=== PATIENT | female | born 1965 | race Caucasian/White ===

== ENCOUNTER 2018-09-06 11:56 | Emergency (ER) | payer OTHER, SELFPAY ==
[2018-09-06 12:00] VITALS: BP 122/89; PULSE 72; RESP 14; TEMP 36.7; O2SAT 98
--- NOTE | 2018-09-06 12:09 | DI.RAD.S_ITS ---
PROCEDURE: XR ANKLE LT MIN 3V INDICATIONS: trauma left ankle / foot. Please include mid foot if pos. TECHNIQUE: 3 views of the ankle were acquired. COMPARISON: None. FINDINGS: Bones: No fractures or dislocations. Ankle mortise is normally aligned. No suspicious bony lesions. Well-defined plantar and dorsal calcaneal enthesophytes are seen. Soft tissues: No tibiotalar joint effusion. Achilles tendon appears normal. Mild ankle soft tissue swelling is seen. IMPRESSION: No acute left ankle fracture or dislocation. Mild ankle soft tissue swelling. Dictated by: Severo Ennis M.D. on 09/06/2018 at 12:42 Approved by: Severo Ennis M.D. on 09/06/2018 at 12:43
--- NOTE | 2018-09-06 12:09 | DI.RAD.S_ITS ---
PROCEDURE: XR KNEE LT 3V INDICATIONS: trauma, pain knee and left ankle/foot TECHNIQUE: 3 views of the knee were acquired. COMPARISON: None. FINDINGS: Bones: No fractures or dislocations. No suspicious bony lesions. Moderate tricompartmental osteoarthritis is seen more prominent in medial femoral tibial compartment. No significant patellar subluxation. Soft tissues: No joint effusion. No suspicious soft tissue calcifications. IMPRESSION: No acute left knee fracture or dislocation. Moderate tricompartmental osteoarthritis. Dictated by: Severo Ennis M.D. on 09/06/2018 at 12:39 Approved by: Seevro Ennis M.D. on 09/06/2018 at 12:40
[2018-09-06 12:14] VITALS: PULSE 72
--- NOTE | 2018-09-06 12:14 | ED.LOWEXIN ---
HPI - Extremity Injury (Lower) <SOFIA Wynn - Last Filed: 09/06/18 21:24> General Chief Complaint: Extremity Injury, Lower Stated Complaint: fall down 5 stairs, left leg injury, ankle pop Time Seen by Provider: 09/06/18 12:14 Source: patient Mode of arrival: ambulatory Limitations: no limitations History of Present Illness HPI Narrative: 52-year-old female history of rheumatoid arthritis and is nonsmoker here for complaint of pain into her left knee ankle and foot after she slipped on her stairs earlier today due to ice. She states that her lower leg bent backwards as she slipped on the steps. Pain is limited to the lower extremity. she denies hitting her head. No neck pain. Pain is limited to the left lower extremity. Increased pain with weight-bearing to the left lower extremity. She does report having some swelling into the left knee and to left ankle. MD complaint: leg injury Related Data Allergies Allergy/AdvReac Type Severity Reaction Status Date / Time hydrocodone [From Vicodin] Allergy Severe Hallucinati Verified 09/06/18 12:08 ng latex Allergy Mild Rash Verified 09/06/18 12:08 Review of Systems <SOFIA Wynn - Last Filed: 09/06/18 21:24> Constitutional Denies chills, Denies fever(s), Denies lethargy and Denies weakness Eyes Denies change in vision, Denies eye discharge, Denies irritation and Denies loss of vision ENT Ears, Nose, Mouth, and Throat: Denies change in voice, Denies neck pain and Denies sore throat Cardiovascular Denies chest pain, Denies irregular heart rhythm, Denies lightheadedness, Denies palpitations, Denies dyspnea, Denies dyspnea on exertion and Denies orthopnea Respiratory Denies cough, Denies dyspnea, Denies dyspnea on exertion and Denies wheezing Gastrointestinal Gastrointestinal: Denies abdominal pain, Denies change in bowel habits, Denies diarrhea, Denies nausea and Denies vomiting Genitourinary Denies hematuria, Denies flank pain, Denies urinary incontinence and Denies urinary urgency Musculoskeletal Denies neck pain Comments: Pain left knee ankle and foot after ground level fall Integumentary/Breasts Denies pruritus, Denies erythema, Denies rash and Denies wounds Neurologic Denies confusion, Denies loss of vision and Denies weakness Psychiatric Denies anxiety, Denies confusion, Denies depression, Denies homicidal ideation and Denies suicidal ideation Endocrine Denies palpitations Hematologic/Lymphatic Denies easy bruising Allergic/Immunologic Denies wheezing Exam <SOFIA Wynn - Last Filed: 09/06/18 21:24> Initial Vital Signs Initial Vital Signs: Vital Signs Temperature 98.1 F 09/06/18 12:00 Pulse Rate 72 09/06/18 12:00 Respiratory Rate 14 09/06/18 12:00 Blood Pressure 122/89 09/06/18 12:00 Pulse Oximetry 98 09/06/18 12:00 Const General: cooperative and well developed Nutritional Appearance: well nourished Orientation: alert, awake, oriented x3 and not confused HENVA Mouth: oral mucosae normal and moist mucous membranes Eyes Conjunctivae: conjunctivae normal Sclera: sclerae normal Pupils: PERRL EOM: EOM intact bilaterally Resp Effort & Inspection: normal respiratory effort, able to speak in complete sentences, no respiratory distress and no use of accessory muscles Auscultation: clear to auscultation bilaterally, no rales, no rhonchi and no wheezes Cardio Rate: regular rate Rhythm: regular rhythm Heart Sounds: no click, no gallops, no murmurs and no rubs Skin General: no rashes or lesions noted, No jaundice and No petechiae Neuro General: alert, oriented x3, gait normal and no focal motor deficits Speech: speech normal Extrem Other: slight swelling to the left knee no ecchymosis. No deformities. No open lesions. Negative anterior-posterior drawer sign. Negative varus and valgus stress test. Swelling into the anterior /medial aspect of the right ankle and into the dorsum of the left foot. No deformities. superficial abrasion to the dorsum of the left foot. Distal sensation is intact. Distal cap refill less than 2 sec. Distal range of motion is intact. <Zhang Younger DO - Last Filed: 09/08/18 07:06> Initial Vital Signs Initial Vital Signs: Vital Signs Temperature 98.1 F 09/06/18 12:00 Pulse Rate 72 09/06/18 12:00 Respiratory Rate 14 09/06/18 12:00 Blood Pressure 122/89 09/06/18 12:00 Pulse Oximetry 98 09/06/18 12:00 Course <SOFIA Wynn - Last Filed: 09/06/18 21:24> Orders Ordered: Discontinued Medications Ibuprofen (Advil) 400 mg PO NOW ONE Stop: 09/06/18 12:24 Last Admin: 09/06/18 12:45 Dose: 400 mg Vital Signs - 8 hr 09/06/18 14:22 Pulse Rate 70 Blood Pressure [Left Arm] 126/78 Pulse Oximetry 98 <Zhang Younger DO - Last Filed: 09/08/18 07:06> Orders Ordered: Discontinued Medications Ibuprofen (Advil) 400 mg PO NOW ONE Stop: 09/06/18 12:24 Last Admin: 09/06/18 12:45 Dose: 400 mg Vital Signs - 8 hr 09/06/18 14:22 Pulse Rate 70 Blood Pressure [Left Arm] 126/78 Pulse Oximetry 98 MDM - Extremity Injury (Lower) <SOFIA Wynn - Last Filed: 09/06/18 21:24> Imaging Data Left knee : Radiologist's impression: [address] [place] [id number] XRay Report Signed Patient: Shila España BETZYR#: [id number] : 1965Acct:[id number] Age/Sex: 52 / FDate of Service: 09/06/18 Loc: ED Accession Number: [id number] Procedure: XR knee LT 3V Ordering Provider: Zhang Younger D.O. PROCEDURE: XR KNEE LT 3V INDICATIONS: trauma, pain knee and left ankle/foot TECHNIQUE: 3 views of the knee were acquired. COMPARISON: None. FINDINGS: Bones: No fractures or dislocations. No suspicious bony lesions. Moderate tricompartmental osteoarthritis is seen more prominent in medial femoral tibial compartment. No significant patellar subluxation. Soft tissues: No joint effusion. No suspicious soft tissue calcifications. IMPRESSION: No acute left knee fracture or dislocation. Moderate tricompartmental osteoarthritis. Dictated by: Severo Ennis M.D. on 09/06/2018 at 12:39 Approved by: Severo Ennis M.D. on 09/06/2018 at 12:40 left ankle : Radiologist's impression: [address] [address] XRay Report Signed Patient: TacoShila JMR#: [id number] : 1965Acct:[id number] Age/Sex: 52 / FDate of Service: 09/06/18 Loc: ED Accession Number: [id number] Procedure: XR ankle LT min 3V Ordering Provider: Zhang Younger D.O. PROCEDURE: XR ANKLE LT MIN 3V INDICATIONS: trauma left ankle / foot. Please include mid foot if pos. TECHNIQUE: 3 views of the ankle were acquired. COMPARISON: None. FINDINGS: Bones: No fractures or dislocations. Ankle mortise is normally aligned. No suspicious bony lesions. Well-defined plantar and dorsal calcaneal enthesophytes are seen. Soft tissues: No tibiotalar joint effusion. Achilles tendon appears normal. Mild ankle soft tissue swelling is seen. IMPRESSION: No acute left ankle fracture or dislocation. Mild ankle soft tissue swelling. Dictated by: Severo Ennis M.D. on 09/06/2018 at 12:42 Approved by: Severo Ennis M.D. on 09/06/2018 at 12:43 left foot : Radiologist's impression: [address] [place] [address] XRay Report Signed Patient: Shila España JMR#: [id number] : 1965Acct:[id number] Age/Sex: 52 / FDate of Service: 09/06/18 Loc: ED Accession Number: [id number] Procedure: XR foot LT min 3V Ordering Provider: Marco Antonio Ramirez PROCEDURE: XR FOOT LT MIN 3V INDICATIONS: pain to right foot ankle and knee after ground level fall TECHNIQUE: 3 views of the foot were acquired. COMPARISON: None. FINDINGS: Bones: No fractures or dislocations. No suspicious bony lesions. Moderate osteoarthritic changes in first MTP joint are seen with joint space narrowing and prominent marginal osteophyte formation. Osteoarthritic changes also noted throughout second through fifth PIP and DIP joints. Well-defined plantar and dorsal continuities of height is seen. Soft tissues: No tibiotalar joint effusion. Achilles tendon appears normal. IMPRESSION: No gross acute level fracture or dislocation. Forefoot joint osteoarthritis. Dictated by: Severo Ennis M.D. on 09/06/2018 at 12:41 Approved by: Severo Ennis M.D. on 09/06/2018 at 12:42 [facility] Narrative Medical decision making narrative: x-rays of the left knee ankle and foot were obtained and were negative for any acute fractures. Signs and symptoms presents as sprain to the left knee and to the left ankle. She is provided with a knee immobilizer and ankle splint along with crutches for nonweightbearing [id number] ibuprofen as needed for any discomfort. Ice and elevation help with any swelling. Follow up with primary care provider later this week for re-evaluation. For any worsening symptoms return to the emergency room. Nonweightbearing until can bear weight without additional discomfort. slowly advance activity as tolerated. Discharge Plan Departure Patient Disposition: Home Clinical Impression: Left ankle sprain, Left knee sprain Discharge Date/Time: 09/06/18 14:23 Interventions: ED Discharge Assessment Last Done: 09/06/18 14:23 Instructions: DI for Knee Sprain, DI for Ankle Sprain Activity Restrictions/Additional Instructions: x-rays of the left knee, ankle and foot were obtained and were negative for any acute fractures. Signs and symptoms presents as sprain to the left knee and to the left ankle. you are placed in a knee immobilizer and ankle splint along with crutches for nonweightbearing and support. Use [id number] ibuprofen as needed for any discomfort. Ice and elevation help with any swelling. Follow up with primary care provider later this week for re-evaluation. For any worsening symptoms return to the emergency room. Nonweightbearing until can bear weight without additional discomfort. slowly advance activity as tolerated. Referrals: [facility] [Provider Group] <Zhang Younger DO - Last Filed: 09/08/18 07:06> [facility] Attestation: I was immediately available in the department for consultation. Documentation has been reviewed. I agree with assessment and plan.
--- NOTE | 2018-09-06 12:15 | PC.NURSE ---
Sensation, movement and neurovascular intact, left foot and leg.
--- NOTE | 2018-09-06 12:23 | DI.RAD.S_ITS ---
PROCEDURE: XR FOOT LT MIN 3V INDICATIONS: pain to right foot ankle and knee after ground level fall TECHNIQUE: 3 views of the foot were acquired. COMPARISON: None. FINDINGS: Bones: No fractures or dislocations. No suspicious bony lesions. Moderate osteoarthritic changes in first MTP joint are seen with joint space narrowing and prominent marginal osteophyte formation. Osteoarthritic changes also noted throughout second through fifth PIP and DIP joints. Well-defined plantar and dorsal continuities of height is seen. Soft tissues: No tibiotalar joint effusion. Achilles tendon appears normal. IMPRESSION: No gross acute level fracture or dislocation. Forefoot joint osteoarthritis. Dictated by: Severo Ennis M.D. on 09/06/2018 at 12:41 Approved by: Severo Ennis M.D. on 09/06/2018 at 12:42
[2018-09-06] MEDS: IBUPROFEN 400 MG TABLET PO (12:45)
--- NOTE | 2018-09-06 13:19 | ED_ITS ---
HPI - Extremity Injury (Lower) <SOFIA Wynn - Last Filed: 09/06/18 21:24> General Chief Complaint: Extremity Injury, Lower Stated Complaint: fall down 5 stairs, left leg injury, ankle pop Time Seen by Provider: 09/06/18 12:14 Source: patient Mode of arrival: ambulatory Limitations: no limitations History of Present Illness HPI Narrative: 52-year-old female history of rheumatoid arthritis and is nonsmoker here for complaint of pain into her left knee ankle and foot after she slipped on her stairs earlier today due to ice. She states that her lower leg bent backwards as she slipped on the steps. Pain is limited to the lower extremity. she denies hitting her head. No neck pain. Pain is limited to the left lower extremity. Increased pain with weight-bearing to the left lower extremity. She does report having some swelling into the left knee and to left ankle. MD complaint: leg injury Related Data Allergies Allergy/AdvReac Type Severity Reaction Status Date / Time hydrocodone [From Vicodin] Allergy Severe Hallucinati Verified 09/06/18 12:08 ng latex Allergy Mild Rash Verified 09/06/18 12:08 Review of Systems <SOFIA Wynn - Last Filed: 09/06/18 21:24> Constitutional Denies chills, Denies fever(s), Denies lethargy and Denies weakness Eyes Denies change in vision, Denies eye discharge, Denies irritation and Denies loss of vision ENT Ears, Nose, Mouth, and Throat: Denies change in voice, Denies neck pain and Denies sore throat Cardiovascular Denies chest pain, Denies irregular heart rhythm, Denies lightheadedness, Denies palpitations, Denies dyspnea, Denies dyspnea on exertion and Denies orthopnea Respiratory Denies cough, Denies dyspnea, Denies dyspnea on exertion and Denies wheezing Gastrointestinal Gastrointestinal: Denies abdominal pain, Denies change in bowel habits, Denies diarrhea, Denies nausea and Denies vomiting Genitourinary Denies hematuria, Denies flank pain, Denies urinary incontinence and Denies urinary urgency Musculoskeletal Denies neck pain Comments: Pain left knee ankle and foot after ground level fall Integumentary/Breasts Denies pruritus, Denies erythema, Denies rash and Denies wounds Neurologic Denies confusion, Denies loss of vision and Denies weakness Psychiatric Denies anxiety, Denies confusion, Denies depression, Denies homicidal ideation and Denies suicidal ideation Endocrine Denies palpitations Hematologic/Lymphatic Denies easy bruising Allergic/Immunologic Denies wheezing Exam <SOFIA Wynn - Last Filed: 09/06/18 21:24> Initial Vital Signs Initial Vital Signs: Vital Signs Temperature 98.1 F 09/06/18 12:00 Pulse Rate 72 09/06/18 12:00 Respiratory Rate 14 09/06/18 12:00 Blood Pressure 122/89 09/06/18 12:00 Pulse Oximetry 98 09/06/18 12:00 Const General: cooperative and well developed Nutritional Appearance: well nourished Orientation: alert, awake, oriented x3 and not confused HENCO Mouth: oral mucosae normal and moist mucous membranes Eyes Conjunctivae: conjunctivae normal Sclera: sclerae normal Pupils: PERRL EOM: EOM intact bilaterally Resp Effort & Inspection: normal respiratory effort, able to speak in complete sentences, no respiratory distress and no use of accessory muscles Auscultation: clear to auscultation bilaterally, no rales, no rhonchi and no wheezes Cardio Rate: regular rate Rhythm: regular rhythm Heart Sounds: no click, no gallops, no murmurs and no rubs Skin General: no rashes or lesions noted, No jaundice and No petechiae Neuro General: alert, oriented x3, gait normal and no focal motor deficits Speech: speech normal Extrem Other: slight swelling to the left knee no ecchymosis. No deformities. No open lesions. Negative anterior-posterior drawer sign. Negative varus and valgus stress test. Swelling into the anterior /medial aspect of the right ankle and into the dorsum of the left foot. No deformities. superficial abrasion to the dorsum of the left foot. Distal sensation is intact. Distal cap refill less than 2 sec. Distal range of motion is intact. <Zhang Younger DO - Last Filed: 09/08/18 07:06> Initial Vital Signs Initial Vital Signs: Vital Signs Temperature 98.1 F 09/06/18 12:00 Pulse Rate 72 09/06/18 12:00 Respiratory Rate 14 09/06/18 12:00 Blood Pressure 122/89 09/06/18 12:00 Pulse Oximetry 98 09/06/18 12:00 Course <SOFIA Wynn - Last Filed: 09/06/18 21:24> Orders Ordered: Discontinued Medications Ibuprofen (Advil) 400 mg PO NOW ONE Stop: 09/06/18 12:24 Last Admin: 09/06/18 12:45 Dose: 400 mg Vital Signs - 8 hr 09/06/18 14:22 Pulse Rate 70 Blood Pressure [Left Arm] 126/78 Pulse Oximetry 98 <Zhang Younger DO - Last Filed: 09/08/18 07:06> Orders Ordered: Discontinued Medications Ibuprofen (Advil) 400 mg PO NOW ONE Stop: 09/06/18 12:24 Last Admin: 09/06/18 12:45 Dose: 400 mg Vital Signs - 8 hr 09/06/18 14:22 Pulse Rate 70 Blood Pressure [Left Arm] 126/78 Pulse Oximetry 98 MDM - Extremity Injury (Lower) <SOFIA Wynn - Last Filed: 09/06/18 21:24> Imaging Data Left knee : Radiologist's impression: [address] [place] [address] XRay Report Signed Patient: Shila España BETZYR#: [id number] : 1965Acct:[id number] Age/Sex: 52 / FDate of Service: 09/06/18 Loc: ED Accession Number: [id number] Procedure: XR knee LT 3V Ordering Provider: Zhang Younger D.O. PROCEDURE: XR KNEE LT 3V INDICATIONS: trauma, pain knee and left ankle/foot TECHNIQUE: 3 views of the knee were acquired. COMPARISON: None. FINDINGS: Bones: No fractures or dislocations. No suspicious bony lesions. Moderate tricompartmental osteoarthritis is seen more prominent in medial femoral tibial compartment. No significant patellar subluxation. Soft tissues: No joint effusion. No suspicious soft tissue calcifications. IMPRESSION: No acute left knee fracture or dislocation. Moderate tricompartmental osteoarthritis. Dictated by: Severo Ennis M.D. on 09/06/2018 at 12:39 Approved by: Severo Ennis M.D. on 09/06/2018 at 12:40 left ankle : Radiologist's impression: [address] [address] XRay Report Signed Patient: TacoShila JMR#: [id number] : 1965Acct:[id number] Age/Sex: 52 / FDate of Service: 09/06/18 Loc: ED Accession Number: [id number] Procedure: XR ankle LT min 3V Ordering Provider: Zhang Younger D.O. PROCEDURE: XR ANKLE LT MIN 3V INDICATIONS: trauma left ankle / foot. Please include mid foot if pos. TECHNIQUE: 3 views of the ankle were acquired. COMPARISON: None. FINDINGS: Bones: No fractures or dislocations. Ankle mortise is normally aligned. No suspicious bony lesions. Well-defined plantar and dorsal calcaneal enthesophytes are seen. Soft tissues: No tibiotalar joint effusion. Achilles tendon appears normal. Mild ankle soft tissue swelling is seen. IMPRESSION: No acute left ankle fracture or dislocation. Mild ankle soft tissue swelling. Dictated by: Severo Ennis M.D. on 09/06/2018 at 12:42 Approved by: Severo Ennis M.D. on 09/06/2018 at 12:43 left foot : Radiologist's impression: [address] [place] [address] XRay Report Signed Patient: Shila España JMR#: [id number] : 1965Acct:[id number] Age/Sex: 52 / FDate of Service: 09/06/18 Loc: ED Accession Number: [id number] Procedure: XR foot LT min 3V Ordering Provider: Marco Antonio Ramirez PROCEDURE: XR FOOT LT MIN 3V INDICATIONS: pain to right foot ankle and knee after ground level fall TECHNIQUE: 3 views of the foot were acquired. COMPARISON: None. FINDINGS: Bones: No fractures or dislocations. No suspicious bony lesions. Moderate osteoarthritic changes in first MTP joint are seen with joint space narrowing and prominent marginal osteophyte formation. Osteoarthritic changes also noted throughout second through fifth PIP and DIP joints. Well-defined plantar and dorsal continuities of height is seen. Soft tissues: No tibiotalar joint effusion. Achilles tendon appears normal. IMPRESSION: No gross acute level fracture or dislocation. Forefoot joint osteoarthritis. Dictated by: Severo Ennis M.D. on 09/06/2018 at 12:41 Approved by: Severo Ennis M.D. on 09/06/2018 at 12:42 [facility] Narrative Medical decision making narrative: x-rays of the left knee ankle and foot were obtained and were negative for any acute fractures. Signs and symptoms presents as sprain to the left knee and to the left ankle. She is provided with a knee immobilizer and ankle splint along with crutches for nonweightbearing [id number] ibuprofen as needed for any discomfort. Ice and elevation help with any swelling. Follow up with primary care provider later this week for re-evaluation. For any worsening symptoms return to the emergency room. Nonweightbearing until can bear weight without additional discomfort. slowly advance activity as tolerated. Discharge Plan Departure Patient Disposition: Home Clinical Impression: Left ankle sprain, Left knee sprain Discharge Date/Time: 09/06/18 14:23 Interventions: ED Discharge Assessment Last Done: 09/06/18 14:23 Instructions: DI for Knee Sprain, DI for Ankle Sprain Activity Restrictions/Additional Instructions: x-rays of the left knee, ankle and foot were obtained and were negative for any acute fractures. Signs and symptoms presents as sprain to the left knee and to the left ankle. you are placed in a knee immobilizer and ankle splint along with crutches for nonweightbearing and support. Use [id number] ibuprofen as needed for any discomfort. Ice and elevation help with any swelling. Follow up with primary care provider later this week for re- evaluation. For any worsening symptoms return to the emergency room. Nonweightbearing until can bear weight without additional discomfort. slowly advance activity as tolerated. Referrals: [facility] [Provider Group] <Zhang Younger DO - Last Filed: 09/08/18 07:06> [facility] Gabriela Attestation: I was immediately available in the department for consultation. Documentation has been reviewed. I agree with assessment and plan.
[2018-09-06 14:22] VITALS: BP 126/78; PULSE 70; O2SAT 98
== END 2018-09-06 14:23 | disposition home or self-care (01) ==
PROVIDERS: Emergency Provider Nurse Practitioner Family
DX: S93.402A Sprain of unspecified ligament of left ankle, initial encounter (principal); S83.92XA Sprain of unspecified site of left knee, initial encounter; W10.8XXA Fall (on) (from) other stairs and steps, initial encounter
CPT/HCPCS: 29530; 73562; 73610; 73630; 99284